=== PATIENT | male | born 1955 | race Caucasian/White ===

== ENCOUNTER 2020-11-21 06:46 | Inpatient (IN) ==
--- NOTE | 2020-11-10 14:20 | PAT Medication Instructions ---
Medication Instructions Date of Service November 10, 2020 Home Medications Medication Instructions Recorded atorvastatin 20 mg tablet 20 mg PO DAILY #90 tab 10/17/20 hydrochlorothiazide 25 mg tablet 25 mg PO DAILY #90 tab 10/17/20 lisinopril 20 mg tablet 20 mg PO DAILY #90 tab 10/17/20 atorvastatin 20 mg tablet 20 mg PO DAILY hydrochlorothiazide 25 mg tablet 25 mg PO DAILY lisinopril 20 mg tablet 20 mg PO DAILY DO NOT take the morning of surgery hydrochlorothiazide 25 mg tablet 25 mg PO DAILY lisinopril 20 mg tablet 20 mg PO DAILY Take morning of surgery With a small sip of water, OTHERWISE NOTHING TO EAT OR DRINK AFTER MIDNIGHT: atorvastatin 20 mg tablet 20 mg PO DAILY Other Notes If you have any questions please call us at [phone] or [phone] or [phone] or [phone]
--- NOTE | 2020-11-14 09:56 | Anesthesiology Consultation ---
Date of Service November 14, 2020 Assessment & Plan (1) Encounter for pre-operative examination: Chart Review Chart Review: Acceptable Risk for Surgery (pending preop Covid testing results ) and Patient seen in Pre Admission Testing Per [facility] appt on 11/14/20, patient denies any travel. No known Covid positive contacts or Covid related symptoms. No known Covid infection in the past 90 days. Preop Covid testing done at [facility] on 11/14/20= results pending. Educated on importance of self quarantining, social distancing and wearing mask in public both for the patient and household contacts. Teaching & Discussion Pre-Anesthesia Teaching/Discussion Notes: Instructed NPO after midnight before surgery,except medications with 15 cc of water. Medication instructions provided according to the [facility] guidelines. History Surgery Operation Date: 11/21/20 11:25 Proposed Procedures p Robotic Laparoscopic Assisted Radical Retropubic Prostatectomy Possible Open Possible Pelvic Lymph Node Dissection, Possible Suprapubic Tube Placement - Percy Bo MD Height/Weight Height: 6 ft 2 in Weight: 118.7 kg Allergies Allergy/AdvReac Type Severity Reaction Status Date / Time No Known Allergies Allergy Mild Verified 11/10/20 09:51 Medications Home Medications Medication Instructions Recorded Confirmed Last Taken atorvastatin 20 mg tablet 20 mg PO DAILY #90 tab 10/17/20 11/10/20 Unknown hydrochlorothiazide 25 mg tablet 25 mg PO DAILY #90 tab 10/17/20 11/10/20 Unknown lisinopril 20 mg tablet 20 mg PO DAILY #90 tab 10/17/20 11/10/20 Unknown Past Medical History Medical History Anemia Mild, chronic s/p negative cologuard 01/2020 Arthritis Hyperlipidemia Hypertension Obesity Prostate cancer Dx'ed Jul 2020 Exercise / Class Metabolic Activity II 4-5 Yardwork/Stairs/Walk up hill (one flight of statirs - no chest pain or SOB ) Past Family History Family History Mother , Passed age 101 of stroke complications Dementia Hypertension Stroke Father , Passed age 49 of an accident Family history of diabetes mellitus Sister , Passed age 68 of Non-Hodgkin's Lymphoma No problems noted. Sister No problems noted. Other Has no children No family history of adverse response to anesthesia Denies family history of Rheumatoid arthritis Ovarian cancer Prostate cancer Diabetes Deep vein thrombosis Osteoporosis Coronary heart disease Dyslipidemia Cerebral aneurysm Alzheimer disease Bipolar disorder Clotting disorder Crohn's disease Depression Heart disease Kidney disease Myocardial infarction Osteoarthritis Breast cancer Schizophrenia Lung cancer COPD (chronic obstructive pulmonary disease) Colorectal cancer Pulmonary embolism Lung disease Ulcerative colitis Colonic polyp Asthma Cystic kidney disease Past Surgical History Surgical History H/O inguinal hernia repair (2010) Left History of prostate biopsy (08/01/20) [place] 4+3 Past Anesthesia History No Hx of Anesthesia Complications and No Family Hx of Anesthesia Complications History of PONV No Hx of PONV and No Hx of Motion Sickness Social History Smoking Status: Never smoker Hx Alcohol Use: Yes alcohol intake frequency: holidays/special occasions only Hx Substance Use: No substance use type: does not use Review of Systems Occ reflux - takes OTC antacid- relieves Patient denies chest pain, shortness of breath, dyspnea on exertion, cough, wheezing, palpitations. No hx of seizures, stroke, CT, apnea/snoring. No hx of blood clots or blood transfusions Physical Exam Vital Signs VITALS BP 135/79 P 75 TEMP 97.7 SP02 99% RESP 16 Constitutional no acute distress ENMT Mouth: no TMJ clicking Thyromental Distance: > or= 3.5 Finger Breadths (3.5) Mallampati Class: III Missing molar Neck + thick neck (mild ) and + limited neck extension (mild ) Respiratory normal respiratory effort; no respiratory distress Auscultation: lungs clear to auscultation bilaterally; no wheezes Cardiovascular Rate/Rhythm: regular rate and regular rhythm Heart Sounds: no murmur Vessels: no carotid bruit Musculoskeletal Spine: no pain with cervical ROM Extremities: extremities normal to inspection Psychiatric Orientation: alert Testing Laboratory Results 11/14/20 10:11 11/14/20 10:14 Urine Color Yellow 11/14/20 10:11 Urine Appearance Clear (Clear) 11/14/20 10:11 Urine pH 7.0 (4.5-7.5) 11/14/20 10:11 Ur Specific [place] 1.017 (1.000-1.030) 11/14/20 10:11 Urine Protein Negative (Negative) 11/14/20 10:11 Urine Glucose (UA) Negative (Negative) 11/14/20 10:11 Urine Ketones Negative (Negative) 11/14/20 10:11 Urine Nitrite Negative (Negative) 11/14/20 10:11 Ur Leukocyte Esterase Negative (Negative) 11/14/20 10:11 Blood Type A Positive 11/14/20 10:11 Antibody Screen NEGATIVE 11/14/20 10:11 Electrocardiogram Date: 11/14/20 Findings: + NSR @ (74bpm) Left anterior fascicular block. Chest X-Ray Date: 11/14/20 Findings: + NAD
--- NOTE | 2020-11-14 10:30 | XRay Report ---
XR chest Pre-admission PA/Lat CLINICAL HISTORY: Preoperative chest. Shortness of breath. Prostate carcinoma. COMPARISON STUDY: No previous studies for comparison. FINDINGS: The cardiac and mediastinal contours are normal. There is no evidence of focal pulmonary co nsolidation. There is no evidence of failure. No pleural effusions are visualized.[ IMPRESSION: No active disease in the chest. ACT 112: Negative or not required by law. Electronically signed by: Rodríguez Charles M.D. 11/14/2020 10:29 AM
[2020-11-14 10:43] LABS: Basophils # (auto) 0.02 K/uL (0-0.2); Basophils % (auto) 0.2 %; Eosinophils # (auto) 0.23 K/uL (0-0.5); Eosinophils % (auto) 2.3 %; Hematocrit (blood only) 38.1 % (42-52); Hemoglobin 13.1 g/dL (14.0-18.0); Immature Granulocytes # (auto) 0.02 K/uL (0.00-0.02); Immature Granulocytes % (auto) 0.2 %; Lymphocytes # (auto) 2.12 K/uL (1.2-3.4); Lymphocytes % (auto) 21.5 %; Mean Corpuscular Hgb Conc 34.4 g/dL (32-36); Mean Corpuscular Volume 87.2 fL (80-100); Monocytes % (auto) 6.1 %; Neutrophils # (auto) 6.85 K/uL (1.4-6.5); Neutrophils % (auto) 69.7 %; Platelet Count 299 K/uL (130-400); RDW Coefficient of Variation 13.5 % (11.5-14.5); RDW Standard Deviation 43.7 fL (36.4-46.3); Red Blood Count 4.37 M/uL (4.7-6.1); White Blood Count 9.84 K/uL (4.8-10.8)
[2020-11-14 10:51] LABS: Appearance Urine Clear (Clear); Bilirubin Urine Negative (Negative); Blood Urine Negative (Negative); Color Urine Yellow; Glucose Urine UA Negative (Negative); Ketones Urine Negative (Negative); Leukocyte Esterase Urine Negative (Negative); Nitrite Urine Negative (Negative); Protein Urine Negative (Negative); Specific Gravity Urine 1.017 (1.000-1.030); Urobilinogen Urine Negative (Negative)
[2020-11-14 10:52] LABS: BUN Creatinine Ratio 14.1 (10-20); Calcium 9.4 mg/dl (8.5-10.1); Creatinine Clr Calc Pharmacy 80.9 ml/min; Est GFR (African American) 68.6; Est GFR (Non-African American) 59.2; Potassium 4.1 mmol/L (3.5-5.1)
--- NOTE | 2020-11-14 13:02 | Electrocardiogram Report ---
Test Reason : Blood Pressure : / mmHG Vent. Rate : 074 BPM Atrial Rate : 074 BPM P-R Int : 164 ms QRS Dur : 102 ms QT Int : 378 ms P-R-T Axes : 015 -68 052 degrees QTc Int : 419 ms Normal sinus rhythm Left anterior fascicular block Abnormal ECG No previous ECGs available Confirmed by Manuel Bejarano ([id number]) on 11/14/2020 1:02:04 PM Referred By: Percy Bo Confirmed By:Manuel Bejarano
[~2020-11-21 06:46] MED LIST: HEPARIN SOD 5,000 UNIT/0.5 ML VIAL SQ SCH; LR 15ML/HR IV SCH; [UNRECOGNIZED DRUG - REMARK] SCH; ceFAZolin 2000MG 2,000 MG/15 ML SYR IV SCH
[2020-11-21] MEDS ORDERED: NEOSTIGMINE METHYLSULFATE 5 MG/5 ML SYR ONE (06:47)
[2020-11-21] MEDS ORDERED: PROPOFOL IV EMULSION 10 MG/ML 20 ML VIAL IV ONE (06:47)
[2020-11-21] MEDS ORDERED: fentaNYL citrate 100 MCG/2 ML VIAL ONE ×3 (06:47→12:32)
[2020-11-21] MEDS ORDERED: ONDANSETRON INJ 2 MG/ML 2 ML VIAL ONE ×2 (06:47→11:49)
[2020-11-21] MEDS ORDERED: ROCURONIUM BROMIDE 10 MG/ML 5 ML VIAL IV ONE ×5 (06:47→10:23)
[2020-11-21] MEDS ORDERED: GLYCOPYRROLATE 0.2 MG/ML VIAL ONE (06:47)
[2020-11-21] MEDS ORDERED: MIDAZOLAM HCL 1 MG/ML 2ML VIAL ONE (06:47)
[2020-11-21] MEDS ORDERED: LIDOCAINE HCL 2% 2 ML VIAL/AMP(20MG/ML) INFIL ONE (06:47)
[2020-11-21] MEDS ORDERED: BUPIVACAINE 0.5 % 5 MG/1 ML MPF 30ML VIAL ONE (06:57)
[2020-11-21] MEDS ORDERED: BELLADONNA/OPIUM SUPP 60 MG SUPP PR ONE ×2 (07:03→11:03)
--- NOTE | 2020-11-21 07:16 | History & Physical Report ---
Date of Service November 21, 2020 Assessment & Plan (1) Prostate cancer: Gl 7 prostate ca - here for prostatectomy - risks, benefits, and expectations reviewed History of Present Illness Primary Care Provider: JULIEN Hyatt presenting for prostatectomy Allergies Allergy/AdvReac Type Severity Reaction Status Date / Time No Known Allergies Allergy Mild Verified 11/21/20 07:01 Home Medications Medication Instructions Recorded Confirmed Type atorvastatin 20 mg tablet 20 mg PO DAILY #90 tab 10/17/20 11/21/20 Rx hydrochlorothiazide 25 mg tablet 25 mg PO DAILY #90 tab 10/17/20 11/10/20 Rx lisinopril 20 mg tablet 20 mg PO DAILY #90 tab 10/17/20 11/10/20 Rx Past Med/Surg History Medical History Anemia Mild, chronic s/p negative cologuard 01/2020 Arthritis Hyperlipidemia Hypertension Obesity Prostate cancer Dx'ed Jul 2020 Surgical History H/O inguinal hernia repair (2010) Left History of prostate biopsy (08/01/20) [place] 4+3 Family History Mother , Passed age 101 of stroke complications Dementia Hypertension Stroke Father , Passed age 49 of an accident Family history of diabetes mellitus Sister , Passed age 68 of Non-Hodgkin's Lymphoma No problems noted. Sister No problems noted. Other Has no children No family history of adverse response to anesthesia Denies family history of Rheumatoid arthritis Ovarian cancer Prostate cancer Diabetes Deep vein thrombosis Osteoporosis Coronary heart disease Dyslipidemia Cerebral aneurysm Alzheimer disease Bipolar disorder Clotting disorder Crohn's disease Depression Heart disease Kidney disease Myocardial infarction Osteoarthritis Breast cancer Schizophrenia Lung cancer COPD (chronic obstructive pulmonary disease) Colorectal cancer Pulmonary embolism Lung disease Ulcerative colitis Colonic polyp Asthma Cystic kidney disease Social History (Updated 09/21/20 @ 10:14 by Kadi Andujar RN) Smoking Status: Never smoker Second Hand Exposure: No; Hx Alcohol Use: Yes Alcohol Intake Frequency: Monthly or Less Hx Substance Use: No Preferred Language: Barb[place] Visual Impairment: Limited Hearing Ability: Normal Station Engineer Main Line Required: No Beliefs That Will Affect Care: None marital status: Single Current Living Situation: Alone current occupational status: retired current occupation: Retired Customer Service at [employer] Feels Safe at Home: Yes Safety Concerns: Feels Safe At This Time Childhood Exposure to Second-Hand Smoke: No caffeine: No during the past year weight has: remained stable Dental Care, Regularly: No Physical Activity Frequency: 3-4 Times per Week Seatbelt Use: always Sunscreen Use: No Assistive Devices: Glasses Review of Systems All systems reviewed & are unremarkable except as noted in HPI & below Physical Exam Constitutional: well developed and well nourished Neck: neck nontender Respiratory: normal respiratory effort; no respiratory distress and does not use accessory muscles Cardiovascular: Rate/Rhythm: regular rate Vessels: radial pulses present Extremities: no edema Gastrointestinal (Abdomen): Inspection/Auscultation: abdomen normal to inspection Percussion/Palpation: abdomen soft; abdomen nontender and no guarding Musculoskeletal: Head/Neck/Chest: normocephalic and head atraumatic Extremities: extremities normal to inspection Skin: no rashes and no lesions Trauma: no evidence of skin trauma Neurologic: awake; not obtunded Speech / Cognition: normal speech Motor/Sensory: no tremor Psychiatric: Orientation: alert and oriented x 3 Genitourinary: no CVA tenderness Lymphatic: no lymphadenopathy
[2020-11-21] MEDS ORDERED: DEXAMETHASONE SOD INJ 4 MG/ML VIAL ONE (09:11)
[2020-11-21] MEDS ORDERED: PHENYLEPHRINE 100MCG/ML 5ML SYR ONE (10:23)
[2020-11-21] MEDS ORDERED: FLOSEAL HEMOSTATIC MATRIX 10ML TOP ONE (11:04)
[2020-11-21] MEDS ORDERED: SURGICEL ABSORB HEMOSTAT 2IN X 14IN TOP ONE (11:04)
--- NOTE | 2020-11-21 12:15 | Operative Report ---
PG Post Operative Report Pre & Post Diagnosis Operation Date: 11/21/20 08:15 Pre-Op Diagnosis: Prostate Cancer Post-Op Diagnosis: Prostate Cancer I identified the patient and participated in the time-out.: Yes Procedure Operation Date: 11/21/20 08:15 Actual Procedures p Robotic Laparoscopic Assisted Prostatectomy and Pelvic Lymph Node Dissection(Not Applicable) - Percy Bo MD Surgeon Toni Bo MD Dancing Master Nahomy Carranza Estimated Blood Loss 50 Findings Consistent with Post-Op Diagnosis Specimens 1. Periprostatic fat 2. Left pelvic lymph nodes 3. Right pelvic lymph nodes 4. Prostate and seminal vesicles Description of Procedure The patient was identified in the preoperative holding area, appropriate informed consents were reviewed and completed, and he was transported to the operating suite. Subcutaneous heparin was administered in the pre-operative holding area. Upon arrival in the operating suite, he received appropriate antibiotics and general anesthesia. He was positioned in dorsal lithotomy, a B&O suppository was inserted after digital rectal exam, and he was prepped and draped in standard fashion. A Lemons catheter was inserted in the sterile field. A Veress needle was passed per umbilicus with uniform insufflation of the abdomen to 15mmHg. He was placed in steep Trendelenburg position. A periumbilical incision was then made to accommodate a 12mm Visiport with 10mm 0degree laparoscope. Inspection of the abdomen was carried out, and there was no evidence of traumatic entry or injury secondary to the Veress needle. After confirming a clear anterior abdominal wall, ports were subsequently placed in standard robotic prostatectomy fashion without incident. To begin the robotic portion of the case, the left lateral aspect of the sigmoid was mobilized off of the left pelvic side wall to allow the pouch of Shiv to be appropriately visualized. I then made an incision in the pouch of Shiv, overlying the seminal vesicles. Both SVs as well as the ampullae of the vasa were entirely dissected, with the vasa transected 3cm from the prostate. The medial umbilical ligaments were then controlled with bipolar electrocautery just inferior to the umbilicus. Following cauterization, they were divided utilizing monopolar cautery. A peritoneal incision was carried from this location to the medial aspect of the internal inguinal rings bilaterally with care to avoid opening through the ring. This incision was concluded when the vas deferens was reached. Dissection of the bladder and prostate off of the posterior aspect of the pubic arch was completed allowing full visualization of the prostate. The fat overlying the prostate was removed en bloc and passed off the table as a specimen labeled "periprostatic fat". The endopelvic fascia was cleared during this portion of the procedure, and subsequently opened - first on the right and then the left. The incision through the endopelvic fascia began near the prostate-bladder junction and was carried to the apex with extreme care to preserve all lateral levator musculature as well as the periurethral musculature and sphincter complex. I additionally preserved the puboprostatic ligaments. I then controlled the DVC with a 3-0 V-lock suture in overlapping/figure of 8 fashion. The lymph node dissection was then conducted. External iliac vessels were identified on the pelvic side wall. The packet of fat and lymphatic tissue that resides just under the iliac vein was elevated and off of the vein with a split and roll technique. The packet was dissected laterally to the circumflex vein and distally to the obturator nerve which was preserved. The proximal aspect of the packet was carried towards the bifurcation of the iliac vessels. A combination of monopolar and bipolar cautery were used to assist with control. After completing the dissection on both sides, the packets were collected and passed off of the table as specimens labeled "pelvic lymph nodes". My attention then returned to the prostate, with identification of the bladder neck aided by gentle traction on the Lemons catheter and lateral to medial pressure at the presumed level of the bladder neck with the robotic instruments. An anterior cystotomy was made, the Lemons balloon deflated and the catheter guided through the incision to allow anterior retraction. I attempted to preserve maximal bladder neck musculature as I circumferentially dissected around the bladder neck. After incision through the posterior aspect of the mucosa, the dissection was carried through detrusor muscle until the bilateral ampullae of the vasa were identified. The previously dissected vasa and SVs were brought through the incision and used to elevated the prostate anteriorly. A posterior plane behind the prostate was then developed - splitting Denonvilliers's fascia. This dissection was carried as far as possible towards the apex as well as far as possible laterally. An incision in the lateral prostatic fascia was then made bilaterally to facilitate control of the vascular pedicles and preservation of the nerve bundles. Vasculature running along the posterior/lateral aspect of the prostate was preserved as well as the tissue containing the nerves. Of note, nerve sparing on the right was extremely conservative given his diagnosis/biopsy. The pedicles were then controlled with a series of Weck clips. The apical attachments of the prostate were remaining at that stage. The DVC was divided after controlled with bipolar cautery over the prostate. Continuous inspection from anterior and lateral views allowed me to closely follow the apical contour of the prostate and maximally preserve urethral length and tissue. The prostate was entirely freed at that point, and collected in an EndoCatch bag before being moved out of the field of vision. Hemostasis was confirmed and anastomosis of the bladder and urethra was completed utilizing a double armed V- Lock stitch. A new Lemons catheter was inserted and the anastomosis tested with irrigation. There was no evidence of leak. A jimmy style stitch was placed bilaterally to functionally marsupialize the area of the lymph node dissection. The robot was undocked, the specimen extracted through expansion of the bekah- umbilical camera port. The fascia was closed with a series of 0-PDS figure of 8 stitches. The right topographical field assistant port was closed in two layers - with a figure of 8 0-Vicryl to reapproximate the fascia followed by 4-0 Monocryl to close the skin. Monocryl was used to close all other skin incisions. All wounds were dressed with Dermabond. The case was concluded and the patient taken to the PACU in stable condition. Nahomy Carranza was present and assisted from incision to closure. I attest to the content of the Intraoperative Record and any orders documented therein. Any exceptions are noted below.
[2020-11-21] MEDS ORDERED: HYDROmorphone INJ 1 MG/ML SYRINGE IV PRN (12:34)
[2020-11-21] MEDS ORDERED: ATROPINE SULFATE 0.1 MG/ML 10ML SYR IV PRN (12:34)
[2020-11-21] MEDS ORDERED: FLUMAZENIL 0.1 MG/1 ML 10 ML VIAL IV PRN (12:34)
[2020-11-21] MEDS ORDERED: NALOXONE HCL 0.4 MG/1 ML VIAL/CARP IV PRN (12:34)
[2020-11-21] MEDS ORDERED: ONDANSETRON INJ 2 MG/ML 2 ML VIAL IV PRN ×2 (12:34→14:14)
[2020-11-21] MEDS ORDERED: PROMETHAZINE HCL 12.5 MG in SODIUM CHLORIDE 0.9% 50 ML IV PRN (12:34)
[2020-11-21] MEDS ORDERED: LABETALOL HCL IV 5 MG/ML 20ML IV PRN (12:34)
[2020-11-21] MEDS ORDERED: ePHEDrine sulfate 50 MG/ML AMP IV PRN (12:34)
[2020-11-21 12:55] LABS: Basophils # (auto) 0.01 K/uL (0-0.2); Basophils % (auto) 0.1 %; Hematocrit (blood only) 37.9 % (42-52); Hemoglobin 12.6 g/dL (14.0-18.0); Immature Granulocytes # (auto) 0.04 K/uL (0.00-0.02); Immature Granulocytes % (auto) 0.3 %; Lymphocytes # (auto) 1.12 K/uL (1.2-3.4); Lymphocytes % (auto) 8.2 %; Mean Corpuscular Hemoglobin 28.8 pg (25-34); Mean Corpuscular Volume 86.7 fL (80-100); Mean Platelet Volume 8.4 fL (7.4-10.4); Monocytes # (auto) 0.26 K/uL (0.11-0.59); Monocytes % (auto) 1.9 %; Neutrophils % (auto) 89.5 %; Platelet Count 254 K/uL (130-400); RDW Coefficient of Variation 13.4 % (11.5-14.5); RDW Standard Deviation 42.9 fL (36.4-46.3); Red Blood Count 4.37 M/uL (4.7-6.1); White Blood Count 13.73 K/uL (4.8-10.8)
[2020-11-21 12:56] LABS: Mean Corpuscular Hgb Conc 33.2 g/dL (32-36)
[2020-11-21] MEDS: fentaNYL citrate 100 MCG/2 ML VIAL IV PRN ×3 (13:04→13:14)
[2020-11-21 13:14] LABS: BUN Creatinine Ratio 14.4 (10-20); Calcium 9.2 mg/dl (8.5-10.1); Est GFR (African American) 46.3; Potassium 3.8 mmol/L (3.5-5.1)
--- NOTE | 2020-11-21 13:33 | Anesthesiology Progress Note ---
Date of Service November 21, 2020 Anesthesia Post Procedure Vital Signs Vital Signs: Temp Pulse Pulse Resp BP BP Pulse Ox 11/21/20 13:25 97 H 18 136/87 94 11/21/20 13:15 101 H 13 128/88 95 11/21/20 13:05 97 H 12 150/84 H 95 11/21/20 12:55 99 H 12 146/86 H 100 11/21/20 12:45 98 H 14 139/86 100 11/21/20 12:35 102 H 18 124/94 99 11/21/20 12:25 36.0 C L 109 H 24 126/84 99 11/21/20 07:12 37.5 C 94 H 22 132/80 97 Pain Intensity Lower Abdomen: Pain Intensity: 4 Transfer of Care Handoff Completed per policy Notes Mental Status: alert / awake / arousable Patient Amnestic to Procedure: Yes Nausea / Vomiting: adequately controlled Pain: adequately controlled Airway Patency, RR, SpO2: stable & adequate BP & HR: stable & adequate Hydration State: stable & adequate Anesthetic Complications: no major complications apparent
[2020-11-21] MEDS ORDERED: ACETAMINOPHEN 325 MG TAB PO PRN (14:14)
[2020-11-21] MEDS ORDERED: oxyCODONE HCL IR 5 MG TAB (IMMEDIATE RELEASE) PO PRN ×2 (14:14)
[2020-11-21] MEDS ORDERED: MoRPHine SULFATE 2 MG/ML CARP IV PRN ×2 (14:14)
[2020-11-21] MEDS: LACTATED RINGER'S 1,000 ML IV SCH ×2 (16:30→18:12)
[2020-11-21] MEDS: ceFAZolin 2000MG 2,000 MG/15 ML SYR IV SCH (16:36)
[2020-11-21] MEDS: HEPARIN SOD 5,000 UNIT/0.5 ML VIAL SQ SCH (21:04)
[2020-11-22] MEDS: ceFAZolin 2000MG 2,000 MG/15 ML SYR IV SCH
[2020-11-22] MEDS: LACTATED RINGER'S 1,000 ML IV SCH (04:35)
[2020-11-22 06:40] LABS: Hemoglobin 12.6 g/dL (14.0-18.0); Immature Granulocytes # (auto) 0.04 K/uL (0.00-0.02); Immature Granulocytes % (auto) 0.2 %; Lymphocytes # (auto) 0.74 K/uL (1.2-3.4); Lymphocytes % (auto) 4.3 %; Mean Corpuscular Hemoglobin 29.4 pg (25-34); Mean Corpuscular Hgb Conc 34.1 g/dL (32-36); Mean Corpuscular Volume 86.2 fL (80-100); Mean Platelet Volume 8.6 fL (7.4-10.4); Monocytes # (auto) 1.33 K/uL (0.11-0.59); Monocytes % (auto) 7.7 %; Neutrophils # (auto) 15.19 K/uL (1.4-6.5); Neutrophils % (auto) 87.8 %; Platelet Count 300 K/uL (130-400); RDW Coefficient of Variation 13.7 % (11.5-14.5); RDW Standard Deviation 43.4 fL (36.4-46.3); Red Blood Count 4.29 M/uL (4.7-6.1)
[2020-11-22 07:21] LABS: BUN Creatinine Ratio 18.1 (10-20); Calcium 8.7 mg/dl (8.5-10.1); Creatinine Clr Calc Pharmacy 75.4 ml/min; Est GFR (African American) 63.7; Potassium 4.7 mmol/L (3.5-5.1)
--- NOTE | 2020-11-22 08:18 | Urology Progress Note ---
Date of Service November 22, 2020 Assessment & Plan (1) Prostate cancer: doing very well after prostatectomy ambulate clears for breakfast - advance to reg for lunch if he does well labs stable plan for d/c home later this afternoon if he continues to progress Admission and Anticipated Discharge Date Admission Date: November 21, 2020 Subjective no issues overnight minimal discomfort urine clear no nausea/vomiting Physical Exam Physical Exam: incisions appropriate abdomen not distended urine clear no edema no bruising Results & Data ([facility]) Vital Signs (Past 12 Hours) Vital Signs Temp Pulse Resp BP Pulse Ox 11/22/20 07:21 36.6 C 82 18 118/72 95 11/22/20 04:25 36.8 C 82 18 118/65 95 11/21/20 23:41 36.9 C 92 H 18 136/82 96 PG Care Time/CCT Total # of Minutes Spent Total Time Spent with Patient: Total time spent is greater than 50% in coordination of care (as documented) at patient's floor/unit and/or counseling patient: Coding Level of Care Code 69779 Subseq Hosp Care Lvl 2 Diagnoses Prostate cancer C61
[2020-11-22] MEDS ORDERED: hydroCHLOROthiazide 25 MG TAB PO SCH (09:00)
[2020-11-22] MEDS ORDERED: lisinopril 20 MG TAB PO SCH (09:00)
[2020-11-22] MEDS ORDERED: ATORVASTATIN 20 MG TAB PO SCH (09:00)
[2020-11-22] MEDS: HEPARIN SOD 5,000 UNIT/0.5 ML VIAL SQ SCH (09:12)
--- NOTE | 2020-11-23 12:35 | Discharge Summary ---
Date of Service November 23, 2020 Admission HPI Per Admitting Provider presenting for prostatectomy Principal Diagnosis Prostate cancer Discharge Data Allergies Allergy/AdvReac Type Severity Reaction Status Date / Time No Known Allergies Allergy Mild Verified 11/21/20 07:01 Procedures Performed Operation Date: 11/21/20 08:15 Actual Procedures p Robotic Laparoscopic Assisted Prostatectomy and Pelvic Lymph Node Dissection(Not Applicable) - Percy Bo MD Hospital Course (1) Prostate cancer: Patient admitted for a robotic prostatectomy - details of the procedure as dictated previously in my operative report - in summary, he tolerated the procedure very well - he was in stable condition overnight with appropriate urine output and stable labs - he was subsequently discharged home with a oshea catheter - he was in stable condition at the time of discharge Total Time Total Time Spent Total Time Spent (In Minutes): 15 Total Time Includes: Examination of the Patient and Discharge Planning Discharge Plan Discharge Items Patient Disposition: Home - Self-Care Reason For Visit: Prostate Cancer Discharge Diagnosis: Prostate Cancer Activity: Per Instructions section Lifting: No more than 25 pounds Bathing Comment: No tub baths or soaks. Ok to shower after discharge. Sexual Activity: Wait until after follow-up appointment Exercise/Sports: Wait until after follow-up appointment Driving/Machine Use: Do not drive while taking prescription pain medication. Non-emergency contact: Surgeon and Urologist Call non-emergency contact if: your pain is not controlled, you have a fever, your temperature is above 101, your wound has increased redness, your wound has increased drainage and your wound pain has increased Follow-up/Referrals: Kim Puri CRNP [Primary Care Provider] - Percy Bo MD [Physician] - 12/06/20 1:15 pm Urology,Nurse [FAKE FOR SCHEDULES] - 11/27/20 10:00 am Diet: Regular Addtl Attending Provider Instructions: Please take all medications as prescribed and keep all follow-ups as scheduled. Please call our office at [phone] with any questions, concerns or need to reschedule appointments for any reason. We are happy to assist you We have sent an antibiotic to your pharmacy of choice. Please begin antibiotic as prescribed the day BEFORE your scheduled voiding trial at [facility]. Please continue antibiotic every 12 hours through the day AFTER your voiding trial. Activity: We recommend having someone with you for the first few days after surgery to help care for you. For the first 2 weeks after surgery, we would like you to get up and walk around your house. However, we recommend limit physical activity that would increase your heart rate. This will allow your body to rest and heal. Take naps if you feel tired. Don't lift anything heavier than 10 pounds, mow the law or ride a bicycle until your follow-up appointment. Please avoid long car rides. Home Care: Unless directed otherwise, drink 6 to 8 glasses of water a day (enough to keep your urine light colored). This will also help keep a healthy flow of urine. We recommend using a stool softener for the first two weeks to avoid constipation. Oshea Catheter or Suprapubic Catheter care: Keep the catheter well secured with either a leg back or leg strap with large bag. Empty your bag when it's about half full. You may notice some blood in the bag. This is normal after surgery and while the catheter is in place. Use mild soap (such as Dove or Dial) and water to wash the catheter and the head of your penis daily, or more frequently if needed. Return to your normal diet, we encourage good protein intake to promote healing. You may shower as normal. Please avoid tub baths or soaking until catheter removed and incisions well healed. Wearing sweat pants while you have the catheter is recommended, they will be more comfortable. Follow-up Your follow up appointments for having your catheter removed, and follow up with your physician should already be scheduled. If you have any questions regarding this, please contact our office. Your final pathology report will be discussed at your physician follow-up appointment. Call [facility] at [phone] right away if you have any of the following: Chest pain or trouble breathing (call [phone] or go to the hospital) Fever of 101F or higher, uncontrolled vomiting Heavy bleeding, clots, or bright red blood from the catheter Catheter that falls out or stops draining Foul-smelling discharge from your catheter Redness, swelling, warmth, or increased pain at your incision site Drainage, pus, or bleeding from your incision Pending Studies at Discharge: Yes Stand-Alone Forms: My [facility] [employer] Medications and DC Order Prescriptions: New ciprofloxacin HCl 500 mg tablet 500 mg PO BID 3 Days Qty: 6 RF: 0 docusate sodium [Colace] 100 mg capsule 100 mg PO BID Qty: 60 RF: 0 oxycodone-acetaminophen [Percocet] 5-325 mg tablet 1 tab PO Q8H PRN (Reason: pain) Qty: 14 RF: 0 Continued lisinopril 20 mg tablet 20 mg PO DAILY Qty: 90 RF: 3 hydrochlorothiazide 25 mg tablet 25 mg PO DAILY Qty: 90 RF: 3 atorvastatin 20 mg tablet 20 mg PO DAILY Qty: 90 RF: 3 Discharge Orders: Discharge Order (Routine); Ordered 11/22/20 Ordered By: Nahomy Carranza Admission Data Admit Date/Time: 11/21/20 12:18 Attending Provider: Percy Bo Admit Provider: Percy Bo Primary Care Provider: Kim Puri Other Interventions: Discharge Summary Assessment (RN) Last Done: 11/22/20 13:54 Coding Level of Care Code D/C Day Management <30 mins Diagnoses Prostate cancer C61
== END 2020-11-22 17:30 | disposition home or self-care (01) | DRG 708 ==
LOC: ASU 06:46 → 3N 12:18